=== PATIENT | female | born 1995 | race Caucasian/White ===

== ENCOUNTER 2022-03-09 01:38 | Emergency (ER) | payer MEDICAID, SELFPAY ==
[2022-03-09 01:56] VITALS: BP 130/61; PULSE 84; RESP 18; TEMP 36.8; O2SAT 98; BMI 27.0
[2022-03-09 02:12] LABS: MANUAL DIFF FLAG NO
[2022-03-09 02:13] LABS: Basophils Absolute Auto 0.1 X10*3/uL (0.0-0.2); Basophils Percent Auto 0.5 % (0-2); Eosinophils Absolute Auto 0.5 X10*3/uL (0.0-0.4); Hematocrit 36.1 % (37.0-47.0); Hemoglobin 12.1 g/dl (12.0-16.0); Imm Gran Abs Auto 0.03 X10*3/uL (0.00-0.03); Imm Gran Pct Auto 0.3 % (0.0-0.4); Lymphocytes Absolute Auto 3.6 X10*3/uL (1.2-4.9); Lymphocytes Percent Auto 30.1 % (20-40); Mean Corpuscular HGB Conc 33.5 g/dl (31.0-35.0); Mean Corpuscular Hemoglobin 30.3 pg (27.0-33.0); Mean Corpuscular Volume 90.3 fL (80.0-98.0); Monocytes Absolute Auto 0.8 X10*3/uL (0.1-1.2); Monocytes Percent Auto 6.8 % (2-11); Neutrophils Percent Auto 58.3 % (45-73); Platelet Count 274 X10*3/uL (160-400); Red Cell Distribution Width 12.4 % (11.0-16.0)
[2022-03-09 02:14] LABS: Appearance Urine CLOUDY; Color Urine RED; Glucose Urine UA NEG (NEG); Leukocyte Esterase Urine NEG (NEG); Nitrite Urine NEG (NEG); Specific Gravity - Urine 1.015 (1.005-1.025); UACC Culture Trigger NO; Urine Blood 3+ (NEG); Urine Ketones NEG (NEG); Urine Protein 2+ MG/DL (NEG-TRACE)
[2022-03-09 02:21] LABS: RBC Urine TNTC /HPF (0); Squamous Epithelial Cell Urine 1+ /LPF; WBC Urine 0-2 /HPF (0-4)
[2022-03-09 02:31] LABS: Alanine Aminotransferase 15 U/L (0-31); Albumin Level 4.2 g/dL (3.5-5.0); Alkaline Phosphatase 60 U/L (39-117); Anion Gap 13 (12-20); Aspartate Amino Transferase 18 U/L (5-31); Bilirubin Total 0.2 mg/dL (0.0-1.0); Blood Urea Nitrogen 18 mg/dL (9-16); Calcium 9.7 mg/dL (8.4-10.2); Carbon Dioxide 24 mmol/L (22-29); Chloride 104 mmol/L (96-108); Estimated Glomerular Filt Rate > 60; Glucose Random 120 mg/dL (60-115); Potassium 4.1 mmol/L (3.3-5.1); Sodium 137 mmol/L (135-145); Total Protein 7.7 g/dL (6.5-8.0)
[2022-03-09 05:07] LABS: HCG Quantitative < 2 mIU/mL
[2022-03-09 05:10] VITALS: BP 108/63; PULSE 75; RESP 14; TEMP 36.5; O2SAT 97
--- NOTE | 2022-03-09 05:12 | ED_ITS ---
HPI - Female Genitourinary General Chief complaint: Vaginal Bleeding Stated complaint: vaginal bleeding for weeks Time Seen by Provider: 03/09/22 04:09 Source: patient Mode of arrival: ambulatory History of Present Illness HPI Narrative: 26-year-old female without significant past medical history other than bilateral tubal ligation and presents with intermittent vaginal bleeding, every 2 weeks, does not seem to last long, and is light in nature. Patient is simply concerned because this continues to happen, she denies being on any oral contraceptives. She otherwise denies dizziness, shortness of breath, abdominal pain, back pain, fevers or chills. Related Data Allergies Allergy/AdvReac Type Severity Reaction Status Date / Time No Known Allergies Allergy Verified 03/09/22 03:58 Review of Systems Review of Systems: Pertinent positives and negatives as stated in HPI 10 point review of systems is otherwise negative. [facility] Past Medical History Source: nursing notes reviewed Social History Social History Advance Directives: No Physical Exam Vital Signs: Vital Signs: Last Vital Signs Temp 97.7 F 03/09/22 05:10 Pulse 75 03/09/22 05:10 Resp 14 03/09/22 05:10 BP 108/63 03/09/22 05:10 Pulse Ox 97 03/09/22 05:10 BMI result Body Mass Index 27.0 VITAL SIGNS: Reviewed. GENERAL: Well developed, well nourished, in no acute distress. HEAD: Normocephalic/atraumatic EYES: PERRLA, EOMI EARS: Ext canals without abnormality OROPHARYNX: no oral lesions noted, posterior pharynx clear LUNGS: Normal breath sounds. No adventitious sounds or accessory muscle use. SpO2<97> CARDIOVASCULAR: Regular rate and rhythm without noted murmurs ABDOMEN: Soft, non-tender, non-distended with bowel sounds. NEUROLOGIC: Alert and oriented x 4. Strength and sensation to light touch were grossly intact x 4. Course Course Course Narrative: 26-year-old female with history and clinical presentation consistent with dysfunctional uterine bleeding, there is no evidence to suggest anemia, hCG is negative, and patient was informed of all results and she is otherwise stable for discharge with recommendation to follow-up with gynecology or primary care provider. MDM - Female Genitourinary Lab Data Result diagrams: 03/09/22 02:05 03/09/22 02:05 Labs: Lab Results 03/09/22 03/09/22 03/09/22 Range/Units 02:05 02:05 02:05 WBC 12.0 H (4.8-10.8) X10*3/uL RBC 4.00 L (4.20-5.50) X10*6/uL Hgb 12.1 (12.0-16.0) g/dl Hct 36.1 L (37.0-47.0) % MCV 90.3 (80.0-98.0) fL MCH 30.3 (27.0-33.0) pg MCHC 33.5 (31.0-35.0) g/dl RDW 12.4 (11.0-16.0) % Plt Count 274 (160-400) X10*3/uL MPV 11.0 (9.4-12.3) fL Immature Gran % (Auto) 0.3 (0.0-0.4) % Neut % (Auto) 58.3 (45-73) % Lymph % (Auto) 30.1 (20-40) % Jerome % (Auto) 6.8 (2-11) % Eos % (Auto) 4.0 (0-4) % Baso % (Auto) 0.5 (0-2) % Lymph # (Auto) 3.6 (1.2-4.9) X10*3/uL Jerome # (Auto) 0.8 (0.1-1.2) X10*3/uL Eos # (Auto) 0.5 H (0.0-0.4) X10*3/uL Baso # (Auto) 0.1 (0.0-0.2) X10*3/uL Abs Immat Gran (auto) 0.03 (0.00-0.03) X10*3/uL Absolute Neuts (auto) 7.0 (2.0-8.3) x10*3/uL Absolute Nucleated RBC 0.000 (0.0-0.012) X10*3/uL Nucleated RBC % (auto) 0.0 (0.0-0.2) /100WBC Sodium 137 (135-145) mmol/L Potassium 4.1 (3.3-5.1) mmol/L Chloride 104 (96-108) mmol/L Carbon Dioxide 24 (22-29) mmol/L Anion Gap 13 (12-20) BUN 18 H (9-16) mg/dL Creatinine 0.76 (0.5-1.4) mg/dL Estim Creat Clear Calc 92.0 Estimated GFR > 60 Random Glucose 120 H (60-115) mg/dL Calcium 9.7 (8.4-10.2) mg/dL Total Bilirubin 0.2 (0.0-1.0) mg/dL AST 18 (5-31) U/L ALT 15 (0-31) U/L Alkaline Phosphatase 60 (39-117) U/L Total Protein 7.7 (6.5-8.0) g/dL Albumin 4.2 (3.5-5.0) g/dL Beta HCG, Quant < 2 mIU/mL Urine Color RED A Urine Appearance CLOUDY Urine pH 8.0 (5.0-8.0) Ur Specific [place] 1.015 (1.005-1.025) Urine Protein 2+ H (NEG-TRACE) MG/DL Urine Glucose (UA) NEG (NEG) MG/DL Urine Ketones NEG (NEG) MG/DL Urine Blood 3+ H (NEG) Urine Nitrite NEG (NEG) Ur Leukocyte Esterase NEG (NEG) Urine RBC TNTC H (0) /HPF Urine WBC 0-2 (0-4) /HPF Ur Squamous Epith Cells 1+ /LPF Urine Bacteria NONE /LPF Discharge Plan Discharge Clinical Impression: Dysfunctional uterine bleeding Patient Disposition: Home, Self-Care Instructions: Dysfunctional Uterine Bleeding (ED) Additional Instructions: Please follow-up with your primary care provider and/or brazer assembler for re- evaluation of your menstrual pattern. Return to the ER for worsening symptoms.
== END 2022-03-09 06:15 | disposition home or self-care (01) ==
PROVIDERS: Emergency Provider Student in an Organized Health Care Education/Training Program
DX: N93.8 Other specified abnormal uterine and vaginal bleeding (principal); Z98.51 Tubal ligation status
CPT/HCPCS: 36415; 80053; 81001; 84702; 85025; 99283

== ENCOUNTER 2022-08-13 07:37 | Emergency (ER) | payer MEDICAID, SELFPAY ==
--- NOTE | ~2022-08-13 | XR_ITS ---
EXAMINATION: XR HAND, RIGHT CLINICAL INFORMATION: Right first digit pain status post trauma. COMPARISON: None TECHNIQUE: PA, lateral, and oblique views of the right hand. FINDINGS: The bones and soft tissues are normal. No fracture. Alignment is anatomic. Joint spaces are maintained. No erosions or soft tissue calcifications. XR/XR hand RT min 3V IMPRESSION: Unremarkable right hand. Specifically, the first digit is intact.
[2022-08-13 08:10] VITALS: BP 121/73; PULSE 84; RESP 16; TEMP 36.3; O2SAT 97; BMI 28.6
--- NOTE | 2022-08-13 10:44 | ED_ITS ---
HPI - Extremity Problem General Chief complaint: Extremity Injury, Upper Stated complaint: r hand caught in car door Time Seen by Provider: 08/13/22 10:36 Source: patient Mode of arrival: ambulatory Limitations: no limitations History of Present Illness HPI Narrative: Patient is a 26-year-old female with no past medical history presenting today for right thumb pain. The patient reports that yesterday she states slammed the door on her right thumb. She reports since then she has had pain, swelling of the thumb, discoloration of the nail. She also endorses swelling of her other fingers of that hand, and occasionally the pain from her thumb, when severe, will radiate up her arm. She also endorses she has limited range of motion of her thumb due to the swelling. The patient also endorses a mild headache, nausea, chills. Though denies fever. The patient denies any blood thinner use. She denies any other injuries complaints or concerns at this time. MD Complaint: extremity swelling (All5 digits of the right hand), joint swelling (Thumb ) and joint pain (MCP) Onset (ago): day(s) (1) Pain Consistency: constant Location: right and other (Right thumb) Quality: constant Radiation: proximal Exacerbating factors: range of motion and palpation Associated symptoms: denies other symptoms Related Data Allergies Allergy/AdvReac Type Severity Reaction Status Date / Time No Known Allergies Allergy Verified 03/09/22 03:58 Review of Systems Review of Systems: Constitutional : No Fever, No Chills, No Night Sweats, No Fatigue, No Malaise ENT/Mouth : No Hearing loss, No Ear Pain, No Nasal Congestion, No Sinus Pain, No Hoarseness, No sore throat, No Rhinorrhea, No Swallowing Difficulty Eyes: No Eye Pain, No Swelling, No Redness, No Foreign Body, No Discharge, No Vision Changes Cardiovascular : No Chest Pain, No SOB, No Dyspnea on Exertion, No Orthopnea, No Edema, No Palpitations Respiratory : No Cough, No Sputum, No Wheezing, No Smoke Exposure, No Dyspnea Gastrointestinal : + Nausea, No Vomiting, No Diarrhea, No Constipation, No abdominal Pain, No Hematochezia, No Melena Musculoskeletal : + MCP of thumb joint pain, No Myalgias, + Swelling of all 5 digits on right hand. Skin : No Skin Lesions, No rash Neuro : + Weakness of right thumb, No Numbness, No Paresthesias, No Loss of Consciousness, No Dizziness, + Headache Heme/Lymph: No Bruising, No Bleeding,No Lymphadenopathy Yes all other systems are reviewed and are negative [facility] Past Medical History Attestation statement: The following information was validated with the patient. Source: old records reviewed and nursing notes reviewed Social History Social History Advance Directives: No Physical Exam Vital Signs: Vital Signs: Last Vital Signs Temp 97.3 F 08/13/22 08:10 Pulse 71 08/13/22 10:49 Resp 16 08/13/22 10:49 BP 135/92 H 08/13/22 10:49 Pulse Ox 99 08/13/22 10:49 O2 Del Method 08/13/22 10:49 BMI result Body Mass Index 28.6 vital signs have been reviewed as normal and appeared to be correct. Blood pressure normal. Heart rate normal. Respiration rate normal. Temperature normal. Oxygen saturation normal. Appearance: Alert. Oriented X3. No acute distress. Head: Normal external exam. Normocephalic. Atraumatic. Eyes: PERRLA. EOMI. Conjunctiva and sclera normal. Eyelids normal. ENT: Moist mucous membranes. No lesions/ulcerations or masses noted on the tongue. Normal voice. No trismus noted. No drooling noted. No muffled voice noted. Neck: Normal inspection. Neck supple. FROM. No adenopathy. No meningeal signs. CVS: Normal heart rate and rhythm. Heart sound normal. Pulses normal throughout. No murmurs/rales/gallops. Respiratory: No respiratory distress. Painless inspiration. Breath sounds normal. No wheezes/rales/rhonchi noted. Chest nontender. No accessory muscle usage noted or decreased air movement noted. Abdomen: Soft and nontender. Nondistended. No guarding. No rigidity. Back: No CVA tenderness. Full range of motion noted. Nontender. No signs of trauma. No rashes/lesion/induration/fluctuance or signs of infection noted. Skin: Skin warm and dry. Normal skin color. Normal skin turgor. Right thumb nail bed color changes to dark reyes. No other rashes/lesions/lacerations noted. Extremities: Limited right thumb flexion with a soft endpoint due to pain/soft tissue swelling. No obvious joint effusion. Not consistent with septic joint. Otherwise all other Extremities exhibit normal range of motion and nontender. Neuro: Oriented X 3. No motor deficit. No sensory deficit. Reflexes normal. Normal steady gait. No focal neuro deficits noted. CN's II-XII intact bilaterally? Vascular: +2 radial pulses b/l. Normal cap refill. No cyanosis noted to upper extremity nails and lower extremity toes nails. Course Course Course Narrative: 10:30am -26 year old female presenting today with right thumb pain. Physical exam significant for a discolored reyes/back right thumb nail, limited flextion of thumb due with a soft endpoint, and swelling of the other digits of the right thumb. Discoloration of some is consistent with a subungual hematoma. Plan: - Nail trephination with Cauterization - Ibuprofen for pain control - X-ray to rule out fracutre Reevaluation(s) Reevaluation #1: Nail trephination with Cauterization. Patient tolerated procedure well. Without any complications. Ibuprofen was ordered for pain. Time: 11:05 Reevaluation #2: X-ray not remarkable for fracture, subluxation, dislocation. Comfortable with discharge home, with supportive care, brace. Time: 11:16 MDM - Extremity (Nontraumatic) Medical Records Attestation: I reviewed the patient's medical records. Imaging Data X-ray hand (right): Attestation: I personally reviewed and interpreted this imaging study as follows: Radiologist's impression: FINDINGS: The bones and soft tissues are normal. No fracture. Alignment is anatomic. Joint spaces are maintained. No erosions or soft tissue calcifications.? XR/XR hand RT min 3V IMPRESSION: Unremarkable right hand. Specifically, the first digit is intact. Procedures Nail Trephination Time out: Yes Location (finger): right and thumb Sterile prep: other (NS) Method of drainage: nail cautery Procedure successful: Yes Patient tolerated procedure: No Complications and Well Complications: pain Orthopedic Splinting/Casting Injury #1: Side: right Upper Extremity Injury Location: hand Upper Extremity Immobilizer: thumb spica Discharge Plan Discharge Clinical Impression: Subungual hematoma of digit of hand, Finger sprain Patient Disposition: Home, Self-Care Instructions: Subungual Hematoma (ED) Additional Instructions: You were seen in the ED for right thumb pain. An x-ray was performed and ruled out a fracture or dislocation. It is likley that you have a subungual hematoma. This is a collection of blood under the nail bed. A nail trephination with cauterization was performed to evacuate blood. You tolerated this procedure well. You were given ibuprofen for pain. You may experience pain. You can continue to take ibuprofen as needed every 6 hours. You may continue to ice the thumb. You were given a brace, please utilize the brace for extra support. Please return to the emergency department or call 911 if her symptoms worsen or you develop new onset of symptoms. Please look out for signs of infection such as striae, warmth extremity, fever, or excessive swelling. Referrals: Physician,None [Primary Care Provider] - (Your PCP for further evaluation as needed if pain does not improve) Interventions: ED Discharge Assessment Last Done: 08/13/22 11:32 Discharge Date/Time: 08/13/22 11:33
[2022-08-13 10:49] VITALS: BP 135/92; PULSE 71; RESP 16; O2SAT 99
[2022-08-13] MEDS: Ibuprofen 800 MG TABLET PO (11:09)
== END 2022-08-13 11:33 | disposition home or self-care (01) ==
PROVIDERS: Emergency Provider Emergency Medicine Emergency Medical Services
DX: S60.111A Contusion of right thumb with damage to nail, initial encounter (principal); W23.1XXA Caught, crushed, jammed, or pinched between stationary objects, initial encounter; Y93.89 Activity, other specified; Y92.810 Car as the place of occurrence of the external cause; Y99.9 Unspecified external cause status
CPT/HCPCS: 11740; 29125; 73130; 99283; 99284

== ENCOUNTER 2023-01-07 05:08 | Emergency (ER) | payer MEDICAID, SELFPAY ==
[2023-01-07 05:16] VITALS: BP 118/77; PULSE 117; RESP 16; TEMP 37.2; O2SAT 98; BMI 27.3
--- NOTE | 2023-01-07 05:48 | ED.GENADULT ---
HPI - General Adult General Chief complaint: General Medical Stated complaint: Flu like Time Seen by Provider: 01/07/23 05:42 Source: patient Mode of arrival: ambulatory Limitations: no limitations History of Present Illness HPI narrative: Patient comes to the emergency room complaining of 3 days of sore throat. Patient states she has been vomiting quite a bit. Patient also comes with her 3 children who have the same symptoms. Patient complaining of subjective fever and chills. Diarrhea, no chest pain or shortness of breath Related Data Previous Rx's Medication Instructions Recorded amoxicillin 500 mg-potassium 1 tab PO TID 10 days #30 tabs 01/07/23 clavulanate 125 mg tablet (Augmentin) Allergies Allergy/AdvReac Type Severity Reaction Status Date / Time No Known Allergies Allergy Verified 03/09/22 03:58 Review of Systems Review of Systems: Constitutional : No Weight loss, complaining of fever and chills No Night Sweats, No Fatigue, No Malaise ENT/Mouth : No Hearing loss, No Ear Pain, No Nasal Congestion, No Sinus Pain, No Hoarseness, complaining of sore throat, No Rhinorrhea, No Swallowing Difficulty Eyes: No Eye Pain, No Swelling, No Redness, No Foreign Body, No Discharge, No Vision Changes Cardiovascular : No Chest Pain, No SOB, No Dyspnea on Exertion, No Orthopnea, No Edema, No Palpitations Respiratory : No Cough, No Sputum, No Wheezing, No Smoke Exposure, No Dyspnea Gastrointestinal : Complaining of nausea vomiting No Diarrhea, No Constipation, No abdominal Pain, No Hematochezia, No Melena Genitourinary : no irregular bleeding, No Dysuria, No Urinary Frequency, No Hematuria, No Urinary Incontinence, No Urgency, No Flank Pain, No Urinary Flow Changes, No Hesitancy Musculoskeletal : No joint pain, No Myalgias, No Joint Swelling Skin : No Skin Lesions, No rash Neuro : No Weakness, No Numbness, No Paresthesias, No Loss of Consciousness, No Dizziness, No Headache Psych : No Anxiety/Panic, No Depression, No SI/HI/AH/VH, No Social Issues, Heme/Lymph: No Bruising, No Bleeding,No Lymphadenopathy Endocrine : No Polyuria, No Polydipsia, No Temperature Intolerance PMFSH Social History Social History Advance Directives: No Advance Directives Information Provided: No Physical Exam ED Vital Signs: Vital Signs - 24 hr 01/07/23 05:16 Temperature 99 F Pulse Rate 117 H Respiratory Rate 16 Blood Pressure 118/77 Pulse Oximetry 98 Oxygen Delivery Method Room Air BMI result Body Mass Index 27.3 Const Other: Appearance: Alert. Oriented X3. No acute distress. Eyes: Pupils equal, round and reactive to light. ENT: Erythematous oropharynx, white exudates in the tonsils Neck: Normal inspection. Neck supple. No lymph nodes noted. No crepitus CVS: Normal heart rate and rhythm. Pulses normal. Normal S1 and S2 Respiratory: No respiratory distress. Breath sounds normal. No Wheezing. No rales Abdomen: Soft and nontender. No rigidity. No distention. Skin: Skin warm and dry. Normal skin color. Normal skin turgor. Extremities: No lower extremity edema. No Lacerations. No Rash Neuro: Oriented X 3. No motor deficit. No sensory deficit. Moving all extremities. No slurred speech. CN 2 through 12 grossly intact Psych: calm, cooperative, normal affect Course Course Course Narrative: -patient's serology and lab work pending. -patient was given p.o. dexamethasone, viscous lidocaine and Zofran Medications Administered Discontinued Medications Generic Name Dose Route Start Last Admin Trade Name Freq PRN Reason Stop Dose Admin Dexamethasone Sodium Phosphate 4 mg 01/07/23 05:44 01/07/23 05:53 Dexamethasone Sod Phosphate 4 Mg/Ml Vial IVPUSH 01/07/23 05:45 4 mg ONCE ONE Administration Lidocaine HCl 15 ml 01/07/23 05:44 01/07/23 05:53 Lidocaine Hcl Viscous 2 % 15 Ml Solution MUCOUS MEM 01/07/23 05:45 15 ml ONCE ONE Administration Ondansetron HCl 4 mg 01/07/23 05:49 01/07/23 05:54 Ondansetron Odt 4 Mg Tab.Rapdis TRANSLINGU 01/07/23 05:50 4 mg ONCE ONE Administration Medical Decision Making Medical Decision Making MDM Narrative: -the whole family tested positive for strep Differential Diagnosis Differential Diagnoses: The differential diagnosis associated with the presentation includes (Strep pharyngitis, viral pharyngitis, COVID, influenza) Lab Data 01/07/23 05:50 01/07/23 05:50 Labs: Lab Results 01/07/23 01/07/23 01/07/23 Range/Units 05:50 05:50 05:50 WBC 16.8 H (4.8-10.8) X10*3/uL RBC 4.98 D (4.20-5.50) X10*6/uL Hgb 14.4 (12.0-16.0) g/dl Hct 43.7 D (37.0-47.0) % MCV 87.8 (80.0-98.0) fL MCH 28.9 (27.0-33.0) pg MCHC 33.0 (31.0-35.0) g/dl RDW 12.5 (11.0-16.0) % Plt Count 245 (160-400) X10*3/uL MPV 10.5 (9.4-12.3) fL Sodium 139 (135-145) mmol/L Potassium 4.1 (3.3-5.1) mmol/L Chloride 102 (96-108) mmol/L Carbon Dioxide 26 (22-29) mmol/L Anion Gap 15 (12-20) BUN 11 (9-16) mg/dL Creatinine 0.98 (0.5-1.4) mg/dL Estim Creat Clear Calc 71.1 Estimated GFR > 60 Random Glucose 123 H (60-115) mg/dL Calcium 9.3 (8.4-10.2) mg/dL Total Bilirubin 0.5 (0.0-1.0) mg/dL Direct Bilirubin < 0.2 (0.0-0.5) mg/dL AST 19 (5-31) U/L ALT 18 (0-31) U/L Alkaline Phosphatase 67 (39-117) U/L Total Protein 8.0 (6.5-8.0) g/dL Albumin 4.5 (3.5-5.0) g/dL Beta HCG, Quant < 2 mIU/mL COVID-19 ([facility]ACIO) (Negative) COVID-19 Clin Com Influenza Type A (ROMARIO) Negative (Negative) Influenza Type B (ROMARIO) Negative (Negative) Influenza A & B Note See Note S. pyogenes GrpA ROMARIO (Negative) 01/07/23 01/07/23 Range/Units 05:50 05:50 WBC (4.8-10.8) X10*3/uL RBC (4.20-5.50) X10*6/uL Hgb (12.0-16.0) g/dl Hct (37.0-47.0) % MCV (80.0-98.0) fL MCH (27.0-33.0) pg MCHC (31.0-35.0) g/dl RDW (11.0-16.0) % Plt Count (160-400) X10*3/uL MPV (9.4-12.3) fL Sodium (135-145) mmol/L Potassium (3.3-5.1) mmol/L Chloride (96-108) mmol/L Carbon Dioxide (22-29) mmol/L Anion Gap (12-20) BUN (9-16) mg/dL Creatinine (0.5-1.4) mg/dL Estim Creat Clear Calc Estimated GFR Random Glucose (60-115) mg/dL Calcium (8.4-10.2) mg/dL Total Bilirubin (0.0-1.0) mg/dL Direct Bilirubin (0.0-0.5) mg/dL AST (5-31) U/L ALT (0-31) U/L Alkaline Phosphatase (39-117) U/L Total Protein (6.5-8.0) g/dL Albumin (3.5-5.0) g/dL Beta HCG, Quant mIU/mL COVID-19 ([facility]ACIO) Negative (Negative) COVID-19 Clin Com See Note Influenza Type A (ROMARIO) (Negative) Influenza Type B (ROMARIO) (Negative) Influenza A & B Note S. pyogenes GrpA ROMARIO Positive A (Negative) Discharge Plan Discharge Clinical Impression: Acute streptococcal pharyngitis Patient Disposition: Home, Self-Care Instructions: Strep Throat (ED) Additional Instructions: Please follow-up with your primary care physician tomorrow. If you have any worsening or new symptoms, please return to the emergency room or call 911 Prescriptions: New amoxicillin-pot clavulanate [Augmentin] 500-125 mg tablet 1 tab PO TID 10 Days Qty: 30 0RF
[2023-01-07] MEDS: Lidocaine HCl Viscous 2 % 15 ML SOLUTION MUCOUS MEM (05:53)
[2023-01-07] MEDS: dexAMETHasone sod phosphate 4 MG/ML VIAL IVPUSH (05:53)
[2023-01-07] MEDS: Ondansetron ODT 4 MG TAB.RAPDIS TRANSLINGU (05:54)
[2023-01-07 06:03] LABS: Basophils Absolute Auto 0.1 X10*3/uL (0.0-0.2); Basophils Percent Auto 0.4 % (0-2); Hematocrit 43.7 % (37.0-47.0); Hemoglobin 14.4 g/dl (12.0-16.0); Imm Gran Abs Auto 0.08 X10*3/uL (0.00-0.03); Imm Gran Pct Auto 0.5 % (0.0-0.4); Lymphocytes Absolute Auto 1.6 X10*3/uL (1.2-4.9); Lymphocytes Percent Auto 9.6 % (20-40); MANUAL DIFF FLAG SCAN; Mean Corpuscular Hemoglobin 28.9 pg (27.0-33.0); Mean Corpuscular Volume 87.8 fL (80.0-98.0); Mean Platelet Volume 10.5 fL (9.4-12.3); Monocytes Absolute Auto 1.6 X10*3/uL (0.1-1.2); Monocytes Percent Auto 9.2 % (2-11); Neutrophils Absolute Auto 13.5 x10*3/uL (2.0-8.3); Neutrophils Percent Auto 80.3 % (45-73); Platelet Count 245 X10*3/uL (160-400); Red Blood Count 4.98 X10*6/uL (4.20-5.50); Red Cell Distribution Width 12.5 % (11.0-16.0); SCAN SMEAR FLAG 1; White Blood Count 16.8 X10*3/uL (4.8-10.8)
[2023-01-07 06:11] LABS: IDNOW Serial# 08D9AD1C; Strep A Nucleic Acid Positive (Negative)
[2023-01-07 06:17] LABS: COVID-19 Test Negative (Negative); IDNOW Serial# 16C4AD1C
[2023-01-07 06:19] LABS: IDNOW Serial# 6674DD1D; Influenza A Negative (Negative); Influenza B2 Negative (Negative)
[2023-01-07 06:25] LABS: Alanine Aminotransferase 18 U/L (0-31); Albumin Level 4.5 g/dL (3.5-5.0); Alkaline Phosphatase 67 U/L (39-117); Anion Gap 15 (12-20); Aspartate Amino Transferase 19 U/L (5-31); Bilirubin Direct < 0.2 mg/dL (0.0-0.5); Bilirubin Total 0.5 mg/dL (0.0-1.0); Blood Urea Nitrogen 11 mg/dL (9-16); Calcium 9.3 mg/dL (8.4-10.2); Carbon Dioxide 26 mmol/L (22-29); Chloride 102 mmol/L (96-108); Creatinine Clr Calc Pharmacy 71.1; Estimated Glomerular Filt Rate > 60; Glucose Random 123 mg/dL (60-115); Potassium 4.1 mmol/L (3.3-5.1); Sodium 139 mmol/L (135-145)
[2023-01-07 06:30] LABS: HCG Quantitative < 2 mIU/mL
[2023-01-07 06:50] LABS: SLIDE REVIEW VERIFIED
== END 2023-01-07 06:50 | disposition home or self-care (01) ==
PROVIDERS: Emergency Provider Emergency Medicine
DX: J02.0 Streptococcal pharyngitis (principal); Z20.822 Contact with and (suspected) exposure to COVID-19; Z20.828 Contact with and (suspected) exposure to other viral communicable diseases; Z79.899 Other long term (current) drug therapy
CPT/HCPCS: 80048; 80076; 84702; 85025; 87502; 87635; 87651; 99282; 99283; J1100

== ENCOUNTER 2023-06-03 16:12 | Emergency (ER) | payer MEDICAID, SELFPAY ==
--- NOTE | 2023-06-03 16:50 | ED.ABDPAIN ---
HPI - Abdominal Pain General Chief Complaint: Abdominal Pain Stated Complaint: N/v/lower abd pain/back pain Related Data Previous Rx's Medication Instructions Recorded amoxicillin 500 mg-potassium 1 tab PO TID 10 days #30 tabs 01/07/23 clavulanate 125 mg tablet (Augmentin) Allergies Allergy/AdvReac Type Severity Reaction Status Date / Time No Known Allergies Allergy Verified 03/09/22 03:58 [facility] Social History Social History Advance Directives: No Advance Directives Information Provided: Yes Physical Exam ED Vital Signs: Vital Signs - 24 hr 06/03/23 16:51 Temperature 98.3 F Pulse Rate 76 Respiratory Rate 18 Blood Pressure 108/60 Pulse Oximetry 98 Oxygen Delivery Method Room Air BMI result Body Mass Index 23.4 Course Course Course Narrative: RME - 27 yo female presents to the ER for evaluation of severe lower abdominal pain/suprapubic pain and low back pain that started a few hours ago. Comes in waves and causes vomiting. +dsyuria and pelvic pressure. LMP 2 months ago. Plan: labs and UA Reevaluation(s) Reevaluation #1: patient eloped prior to full evaluation and treatment Medical Decision Making Lab Data 06/03/23 17:22 06/03/23 17:22 Labs: Lab Results 06/03/23 06/03/23 06/03/23 Range/Units 17:22 17:22 17:22 WBC 12.1 H (4.8-10.8) X10*3/uL RBC 4.76 (4.20-5.50) X10*6/uL Hgb 14.0 (12.0-16.0) g/dl Hct 43.2 (37.0-47.0) % MCV 90.8 (80.0-98.0) fL MCH 29.4 (27.0-33.0) pg MCHC 32.4 (31.0-35.0) g/dl RDW 11.9 (11.0-16.0) % Plt Count 328 D (160-400) X10*3/uL MPV 10.9 (9.4-12.3) fL Immature Gran % (Auto) 0.3 (0.0-0.4) % Neut % (Auto) 72.4 (45-73) % Lymph % (Auto) 17.5 L (20-40) % [place] % (Auto) 5.9 (2-11) % Eos % (Auto) 3.3 (0-4) % Baso % (Auto) 0.6 (0-2) % Lymph # (Auto) 2.1 (1.2-4.9) X10*3/uL [place] # (Auto) 0.7 (0.1-1.2) X10*3/uL Eos # (Auto) 0.4 (0.0-0.4) X10*3/uL Baso # (Auto) 0.1 (0.0-0.2) X10*3/uL Abs Immat Gran (auto) 0.04 H (0.00-0.03) X10*3/uL Absolute Neuts (auto) 8.8 H (2.0-8.3) x10*3/uL Absolute Nucleated RBC 0.000 (0.0-0.012) X10*3/uL Nucleated RBC % (auto) 0.0 (0.0-0.2) /100WBC Sodium 138 (135-145) mmol/L Potassium 4.3 (3.3-5.1) mmol/L Chloride 104 (96-108) mmol/L Carbon Dioxide 25 (22-29) mmol/L Anion Gap 13 (12-20) BUN 10 (9-16) mg/dL Creatinine 0.81 (0.5-1.4) mg/dL Estim Creat Clear Calc 74.2 Estimated GFR > 60 Random Glucose 105 (60-115) mg/dL Calcium 9.8 (8.4-10.2) mg/dL Magnesium 2.1 (1.6-2.6) mg/dL Total Bilirubin 0.2 (0.0-1.0) mg/dL Direct Bilirubin < 0.2 (0.0-0.5) mg/dL AST 56 H (5-31) U/L ALT 83 H (0-31) U/L Alkaline Phosphatase 71 (39-117) U/L Total Protein 8.2 H (6.5-8.0) g/dL Albumin 4.2 (3.5-5.0) g/dL Urine Color Yellow Urine Appearance Clear Urine pH 6.0 (5.0-9.0) Ur Specific [place] 1.015 (1.005-1.025) Urine Protein Negative (Neg-Trace) mg/dL Urine Glucose (UA) Negative (Negative) mg/dL Urine Ketones Negative (Negative) mg/dL Urine Blood Negative (Negative) Urine Nitrite Negative (Negative) Ur Leukocyte Esterase Trace H (Negative) Urine RBC 0-2 (0-2) /HPF Urine WBC 0-5 (0-5) /HPF Ur Squamous Epith Cells 3-5 (0-2) /HPF Urine Bacteria None Seen (None Seen) Hyaline Casts 0-2 (0-2) /LPF Urine Test (NEGATIVE) 06/03/23 Range/Units 17:22 WBC (4.8-10.8) X10*3/uL RBC (4.20-5.50) X10*6/uL Hgb (12.0-16.0) g/dl Hct (37.0-47.0) % MCV (80.0-98.0) fL MCH (27.0-33.0) pg MCHC (31.0-35.0) g/dl RDW (11.0-16.0) % Plt Count (160-400) X10*3/uL MPV (9.4-12.3) fL Immature Gran % (Auto) (0.0-0.4) % Neut % (Auto) (45-73) % Lymph % (Auto) (20-40) % [place] % (Auto) (2-11) % Eos % (Auto) (0-4) % Baso % (Auto) (0-2) % Lymph # (Auto) (1.2-4.9) X10*3/uL [place] # (Auto) (0.1-1.2) X10*3/uL Eos # (Auto) (0.0-0.4) X10*3/uL Baso # (Auto) (0.0-0.2) X10*3/uL Abs Immat Gran (auto) (0.00-0.03) X10*3/uL Absolute Neuts (auto) (2.0-8.3) x10*3/uL Absolute Nucleated RBC (0.0-0.012) X10*3/uL Nucleated RBC % (auto) (0.0-0.2) /100WBC Sodium (135-145) mmol/L Potassium (3.3-5.1) mmol/L Chloride (96-108) mmol/L Carbon Dioxide (22-29) mmol/L Anion Gap (12-20) BUN (9-16) mg/dL Creatinine (0.5-1.4) mg/dL Estim Creat Clear Calc Estimated GFR Random Glucose (60-115) mg/dL Calcium (8.4-10.2) mg/dL Magnesium (1.6-2.6) mg/dL Total Bilirubin (0.0-1.0) mg/dL Direct Bilirubin (0.0-0.5) mg/dL AST (5-31) U/L ALT (0-31) U/L Alkaline Phosphatase (39-117) U/L Total Protein (6.5-8.0) g/dL Albumin (3.5-5.0) g/dL Urine Color Urine Appearance Urine pH (5.0-9.0) Ur Specific [place] (1.005-1.025) Urine Protein (Neg-Trace) mg/dL Urine Glucose (UA) (Negative) mg/dL Urine Ketones (Negative) mg/dL Urine Blood (Negative) Urine Nitrite (Negative) Ur Leukocyte Esterase (Negative) Urine RBC (0-2) /HPF Urine WBC (0-5) /HPF Ur Squamous Epith Cells (0-2) /HPF Urine Bacteria (None Seen) Hyaline Casts (0-2) /LPF Urine Test NEGATIVE (NEGATIVE) Discharge Plan Discharge Clinical Impression: Abdominal pain Patient Disposition: Elopement Prescriptions: No Action amoxicillin-pot clavulanate [Augmentin] 500-125 mg tablet 1 tab PO TID 10 Days Qty: 30 0RF Discharge Date/Time: 06/03/23 18:23
[2023-06-03 16:51] VITALS: BP 108/60; PULSE 76; RESP 18; TEMP 36.8; O2SAT 98; BMI 23.4
[2023-06-03 17:46] LABS: Basophils Absolute Auto 0.1 X10*3/uL (0.0-0.2); Basophils Percent Auto 0.6 % (0-2); Eosinophils Absolute Auto 0.4 X10*3/uL (0.0-0.4); Eosinophils Percent Auto 3.3 % (0-4); Hematocrit 43.2 % (37.0-47.0); Imm Gran Abs Auto 0.04 X10*3/uL (0.00-0.03); Imm Gran Pct Auto 0.3 % (0.0-0.4); Lymphocytes Absolute Auto 2.1 X10*3/uL (1.2-4.9); Lymphocytes Percent Auto 17.5 % (20-40); MANUAL DIFF FLAG NO; Mean Corpuscular HGB Conc 32.4 g/dl (31.0-35.0); Mean Corpuscular Hemoglobin 29.4 pg (27.0-33.0); Mean Corpuscular Volume 90.8 fL (80.0-98.0); Mean Platelet Volume 10.9 fL (9.4-12.3); Monocytes Absolute Auto 0.7 X10*3/uL (0.1-1.2); Monocytes Percent Auto 5.9 % (2-11); Neutrophils Absolute Auto 8.8 x10*3/uL (2.0-8.3); Neutrophils Percent Auto 72.4 % (45-73); Platelet Count 328 X10*3/uL (160-400); Red Blood Count 4.76 X10*6/uL (4.20-5.50); Red Cell Distribution Width 11.9 % (11.0-16.0); White Blood Count 12.1 X10*3/uL (4.8-10.8)
[2023-06-03 18:08] LABS: Alanine Aminotransferase 83 U/L (0-31); Albumin Level 4.2 g/dL (3.5-5.0); Alkaline Phosphatase 71 U/L (39-117); Anion Gap 13 (12-20); Aspartate Amino Transferase 56 U/L (5-31); Bilirubin Direct < 0.2 mg/dL (0.0-0.5); Bilirubin Total 0.2 mg/dL (0.0-1.0); Blood Urea Nitrogen 10 mg/dL (9-16); Calcium 9.8 mg/dL (8.4-10.2); Carbon Dioxide 25 mmol/L (22-29); Chloride 104 mmol/L (96-108); Creatinine Clr Calc Pharmacy 74.2; Estimated Glomerular Filt Rate > 60; Glucose Random 105 mg/dL (60-115); Magnesium 2.1 mg/dL (1.6-2.6); Potassium 4.3 mmol/L (3.3-5.1); Sodium 138 mmol/L (135-145); Total Protein 8.2 g/dL (6.5-8.0)
[2023-06-03 18:09] LABS: Appearance Urine Clear; Color Urine Yellow; Glucose Urine UA Negative (Negative); Leukocyte Esterase Urine Trace (Negative); Nitrite Urine Negative (Negative); Specific Gravity - Urine 1.015 (1.005-1.025); UMIC TRIGGER UACC YES; Urine Blood Negative (Negative); Urine Ketones Negative (Negative); Urine Protein Negative (Neg-Trace)
[2023-06-03 18:15] LABS: Bacteria Urine None Seen (None Seen); Hyaline Casts Urine 0-2 /LPF (0-2); RBC Urine 0-2 /HPF (0-2); UPreg QC Valid YES; Urine Pregnancy NEGATIVE (NEGATIVE); WBC Urine 0-5 /HPF (0-5)
== END 2023-06-03 18:23 | disposition left against medical advice (07) ==
PROVIDERS: Physician Assistant; Emergency Provider Emergency Medicine
DX: R11.2 Nausea with vomiting, unspecified (principal); M54.50 Low back pain, unspecified; R10.2 Pelvic and perineal pain; Z79.899 Other long term (current) drug therapy
CPT/HCPCS: 36415; 80048; 80076; 81001; 81025; 83735; 85025; 99282; 99283